=== PATIENT | female | born 1990 | race Caucasian/White ===

== ENCOUNTER 2023-11-28 23:02 | Emergency (ER) | payer OTHER ==
[~2023-11-28] VITALS: Ht 170.2 cm; Wt 238.1 kg
[2023-11-28 23:07] VITALS: BP 131/43; PULSE 79; RESP 18; TEMP 98.6; O2SAT 97
[2023-11-28] MEDS ORDERED: HYDR25TA PO (23:41)
== END 2023-11-28 23:51 | disposition home or self-care (01) ==
LOC: ER 23:02
DX: F41.9 Anxiety disorder, unspecified (principal)
CPT/HCPCS: 99281

== ENCOUNTER 2024-01-24 19:50 | Emergency (ER) | payer OTHER ==
[~2024-01-24] VITALS: Ht 170.2 cm; Wt 249.5 kg
[~2024-01-24 19:50] MED LIST: HYDR25TA PO
[2024-01-24 20:16] VITALS: BP 164/92; PULSE 89; RESP 22; TEMP 98.7; O2SAT 98
[2024-01-24] MEDS ORDERED: TORADOL ONE (21:04)
[2024-01-24] MEDS ORDERED: AUGMENTIN 875MG ONE (21:04)
[2024-01-24] MEDS ORDERED: GUAIFENESIN ONE (21:04)
[2024-01-24] MEDS: GUAIFENESIN PO ONE (21:11)
[2024-01-24] MEDS: AUGMENTIN 875MG PO STA (21:11)
[2024-01-24] MEDS: ROBITUSSIN DM PO STA (21:12)
[2024-01-24] MEDS: TORADOL IM STA (21:12)
[2024-01-24 21:15] VITALS: BP 157/81; PULSE 91; RESP 20; TEMP 98.6; O2SAT 98
== END 2024-01-24 21:20 | disposition home or self-care (01) ==
LOC: ER 19:50
DX: H66.92 Otitis media, unspecified, left ear (principal); B34.9 Viral infection, unspecified; R56.9 Unspecified convulsions; J45.909 Unspecified asthma, uncomplicated; G47.30 Sleep apnea, unspecified; E66.9 Obesity, unspecified; E28.2 Polycystic ovarian syndrome; F90.9 Attention-deficit hyperactivity disorder, unspecified type
CPT/HCPCS: 99283; 96372; J1885